=== PATIENT | male | born 1975 | race Caucasian/White ===

== ENCOUNTER 2022-07-19 04:45 | Emergency (ER) | payer MEDICAID ==
[~2022-07-19] VITALS: Ht 182.9 cm; Wt 120.1 kg
[2022-07-19] MEDS ORDERED: LIDOCAINE 5% PATCH TOP SCH (09:30)
[2022-07-19] MEDS ORDERED: IBUPROFEN 400MG TABLET PO ONE (09:30)
[2022-07-19] MEDS ORDERED: IBUP-2028 MT (09:32)
[2022-07-19 09:56] VITALS: BP 137/76
== END 2022-07-19 09:58 | disposition home or self-care (01) ==
LOC: ER 04:45
DX: M79.89 Other specified soft tissue disorders (principal); G89.29 Other chronic pain; M54.59 Other low back pain; I10 Essential (primary) hypertension; E11.9 Type 2 diabetes mellitus without complications; Z59.02 Unsheltered homelessness
CPT/HCPCS: 99283

== ENCOUNTER 2022-07-27 22:54 | Emergency (ER) | payer MEDICAID ==
[~2022-07-27] VITALS: Ht 185.4 cm; Wt 118.1 kg
[~2022-07-27 22:54] MED LIST: IBUP-2028 MT
[2022-07-28 02:25] VITALS: BP 122/72
== END 2022-07-28 02:31 | disposition home or self-care (01) ==
LOC: ER 23:06
DX: R60.0 Localized edema (principal); M54.9 Dorsalgia, unspecified; I10 Essential (primary) hypertension; E11.9 Type 2 diabetes mellitus without complications
CPT/HCPCS: 99281

== ENCOUNTER 2022-08-03 23:33 | Emergency (ER) | payer MEDICAID, OTHER ==
[~2022-08-03] VITALS: Ht 182.9 cm; Wt 82.0 kg
[2022-08-03 23:54] VITALS: BP 133/66
[2022-08-04] MEDS ORDERED: DOXY-326 MT (02:26)
[2022-08-04] MEDS ORDERED: ACET-2708 MT (02:26)
[2022-08-04] MEDS ORDERED: ACETAMINOPHEN 500MG TABLET PO ONE (02:30)
[2022-08-04] MEDS ORDERED: CEFTRIAXONE SODIUM 500 MG/VIAL IM ONE (02:30)
[2022-08-04] MEDS ORDERED: DOXYCYCLINE HYCLATE 100MG CAPSULE PO ONE (02:30)
[2022-08-04 02:53] LABS: CLARITY URINE CLEAR (CLEAR); COLOR URINE YELLOW (YELLOW); KETONES URINE TRACE (NEGATIVE); LEUKOCYTE ESTERASE URINE NEGATIVE (NEGATIVE); NITRITE URINE NEGATIVE (NEGATIVE); OCCULT BLOOD URINE 2+ (NEGATIVE); PROTEIN URINE TRACE (NEGATIVE); SPECIFIC GRAVITY URINE 1.029 (1.005-1.030)
[2022-08-07 05:11] LABS: NEISSERIA GONORRHOEAE NAA Negative (Negative)
== END 2022-08-04 03:00 | disposition home or self-care (01) ==
LOC: ER 23:33
DX: M54.59 Other low back pain (principal); R30.0 Dysuria; I10 Essential (primary) hypertension; E11.9 Type 2 diabetes mellitus without complications
CPT/HCPCS: 81003; 87491; 87591; 96372; 99283; J0696

== ENCOUNTER 2022-08-06 05:50 | Emergency (ER) | payer MEDICAID, OTHER ==
[~2022-08-06] VITALS: Ht 182.9 cm; Wt 118.3 kg
[~2022-08-06 05:50] MED LIST changes: +ACET-2708 MT; +DOXY-326 MT
[2022-08-06 09:00] VITALS: BP 130/80
== END 2022-08-06 09:49 | disposition home or self-care (01) ==
LOC: ER 06:07
DX: N52.9 Male erectile dysfunction, unspecified (principal); I10 Essential (primary) hypertension; E11.9 Type 2 diabetes mellitus without complications; F41.0 Panic disorder [episodic paroxysmal anxiety]; Z59.02 Unsheltered homelessness; F32.A Depression, unspecified
CPT/HCPCS: 82962; 99281; 99282

== ENCOUNTER 2022-08-10 22:25 | Emergency (ER) | payer MEDICAID ==
[~2022-08-10] VITALS: Ht 180.3 cm; Wt 117.8 kg
[2022-08-11] MEDS ORDERED: KETOROLAC 60MG/2ML VIAL IM STA (00:52)
[2022-08-11] MEDS ORDERED: MAGNESIUM/ALUMINUM HYDROXIDE/SIMETHICONE 30ML UDC PO ONE (01:00)
[2022-08-11] MEDS ORDERED: FAMOTIDINE 20MG TABLET PO ONE (01:00)
[2022-08-11 01:48] VITALS: BP 135/80
[2022-08-11 02:42] LABS: CLARITY URINE CLEAR (CLEAR); COLOR URINE YELLOW (YELLOW); KETONES URINE NEGATIVE (NEGATIVE); LEUKOCYTE ESTERASE URINE NEGATIVE (NEGATIVE); NITRITE URINE NEGATIVE (NEGATIVE); OCCULT BLOOD URINE 1+ (NEGATIVE); PROTEIN URINE NEGATIVE (NEGATIVE); SPECIFIC GRAVITY URINE 1.018 (1.005-1.030); UROBILINOGEN URINE 0.2 E.U./dL (0.2-1.0)
[2022-08-11] MEDS ORDERED: NAPR-681 PO (03:11)
[2022-08-11] MEDS ORDERED: FAMO20TA8 MT (03:11)
[2022-08-14 04:07] LABS: NEISSERIA GONORRHOEAE NAA Negative (Negative)
== END 2022-08-11 03:43 | disposition home or self-care (01) ==
LOC: ER 22:25
DX: R51.9 Headache, unspecified (principal); R10.13 Epigastric pain; I10 Essential (primary) hypertension; E11.9 Type 2 diabetes mellitus without complications; F20.9 Schizophrenia, unspecified; Z79.899 Other long term (current) drug therapy
CPT/HCPCS: 81003; 87491; 87591; 96372; 99283; J1885

== ENCOUNTER 2022-08-12 00:01 | Emergency (ER) | payer MEDICAID ==
[~2022-08-12] VITALS: Ht 177.8 cm; Wt 118.4 kg
[~2022-08-12 00:01] MED LIST changes: +FAMO20TA8 MT; +NAPR-681 PO
[2022-08-12 00:30] VITALS: BP 148/80
[2022-08-12 04:15] LABS: BASOPHILS % 0.5 % (0.0-2.0); HEMATOCRIT. 39.1 % (42.0-52.0); HEMOGLOBIN. 13.1 g/dL (14.0-18.0); MEAN CORPUSCULAR HEMOGLOBIN 33.9 pg (28.0-32.0); MEAN CORPUSCULAR VOLUME 101.5 fL (80.0-94.0); MEAN PLATELET VOLUME 7.9 fl (7.4-10.4); MONOCYTES % 7.6 % (2.0-8.0); NEUTROPHILS % 59.9 % (40.0-76.0); PLATELET 138 x1000/uL (130-400); RED BLOOD CELL COUNT 3.86 mill/uL (4.7-6.1); RED CELL DISTRIBUTION WIDTH 14.2 % (11.6-14.6)
[2022-08-12 04:23] LABS: CHLORIDE 105 mEq/L (98-107)
[2022-08-12 06:12] LABS: CLARITY URINE CLEAR (CLEAR); COLOR URINE YELLOW (YELLOW); KETONES URINE NEGATIVE (NEGATIVE); LEUKOCYTE ESTERASE URINE NEGATIVE (NEGATIVE); NITRITE URINE NEGATIVE (NEGATIVE); OCCULT BLOOD URINE TRACE (NEGATIVE); PROTEIN URINE NEGATIVE (NEGATIVE); SPECIFIC GRAVITY URINE 1.019 (1.005-1.030); UROBILINOGEN URINE 0.2 E.U./dL (0.2-1.0)
== END 2022-08-12 07:34 | disposition home or self-care (01) ==
LOC: ER 00:22
DX: R10.9 Unspecified abdominal pain (principal); I10 Essential (primary) hypertension; E11.9 Type 2 diabetes mellitus without complications; Z86.59 Personal history of other mental and behavioral disorders
CPT/HCPCS: 36415; 80053; 81003; 85025; 99283

== ENCOUNTER 2022-08-21 02:02 | Emergency (ER) | payer MEDICAID ==
[~2022-08-21] VITALS: Ht 177.8 cm; Wt 120.6 kg
[2022-08-21] MEDS ORDERED: ACETAMINOPHEN 500MG TABLET PO ONE (02:45)
[2022-08-21 03:20] VITALS: BP 134/85
== END 2022-08-21 03:20 | disposition home or self-care (01) ==
LOC: ER 02:02
DX: Z76.0 Encounter for issue of repeat prescription (principal); F20.9 Schizophrenia, unspecified; G89.29 Other chronic pain
CPT/HCPCS: 99282

== ENCOUNTER 2022-08-24 08:12 | Emergency (ER) | payer MEDICAID ==
[~2022-08-24] VITALS: Ht 180.3 cm; Wt 91.0 kg
[2022-08-24 12:33] LABS: BASOPHILS % 0.6 % (0.0-2.0); EOSINOPHILS % 3.4 % (0.0-5.0); HEMATOCRIT. 38.2 % (42.0-52.0); LYMPHOCYTES % 23.1 % (20.0-50.0); MEAN CORPUSCULAR HEMOGLOBIN 33.9 pg (28.0-32.0); MEAN CORPUSCULAR VOLUME 99.7 fL (80.0-94.0); MEAN PLATELET VOLUME 7.4 fl (7.4-10.4); NEUTROPHILS % 66.9 % (40.0-76.0); PLATELET 138 x1000/uL (130-400); RED BLOOD CELL COUNT 3.83 mill/uL (4.7-6.1); RED CELL DISTRIBUTION WIDTH 13.7 % (11.6-14.6)
[2022-08-24 12:41] LABS: CHLORIDE 101 mEq/L (98-107)
[2022-08-24 12:50] LABS: ETHANOL BLOOD < 10 mg/dL
[2022-08-24 15:40] LABS: *AMPHETAMINES SCREEN URINE NEGATIVE (NEGATIVE); *BARBITURATES SCREEN URINE NEGATIVE (NEGATIVE); *BENZODIAZEPINES SCREEN URINE NEGATIVE (NEGATIVE); *COCAINE SCREEN URINE NEGATIVE (NEGATIVE); CANNABINOID URINE SCREEN NEGATIVE (NEGATIVE); METHADONE URINE SCREEN NEGATIVE (NEGATIVE); OPIATES URINE SCREEN NEGATIVE (NEGATIVE); PHENCYCLIDINE URINE SCREEN NEGATIVE (NEGATIVE)
[2022-08-25] MEDS: OLANZAPINE 5MG TABLET ODT PO SCH (10:51)
[2022-08-25 16:19] LABS: CLARITY URINE CLEAR (CLEAR); COLOR URINE YELLOW (YELLOW); KETONES URINE NEGATIVE (NEGATIVE); LEUKOCYTE ESTERASE URINE NEGATIVE (NEGATIVE); NITRITE URINE NEGATIVE (NEGATIVE); OCCULT BLOOD URINE TRACE (NEGATIVE); PROTEIN URINE NEGATIVE (NEGATIVE); SPECIFIC GRAVITY URINE 1.009 (1.005-1.030); UROBILINOGEN URINE 0.2 E.U./dL (0.2-1.0)
[2022-08-26] MEDS: OLANZAPINE 5MG TABLET ODT PO SCH (09:00)
[2022-08-26 14:00] VITALS: BP 133/91
[2022-08-26] MEDS ORDERED: ACETAMINOPHEN 325MG TABLET PO ONE (14:00)
== END 2022-08-26 14:56 ==
LOC: ER 08:12
DX: R45.851 Suicidal ideations (principal); R44.1 Visual hallucinations; F32.9 Major depressive disorder, single episode, unspecified; F14.10 Cocaine abuse, uncomplicated; Z20.822 Contact with and (suspected) exposure to COVID-19
CPT/HCPCS: 36415; 80053; 80305; 80320; 81001; 85025; 87426; 99285; C9803; G0480

== ENCOUNTER 2022-09-04 22:54 | Emergency (ER) | payer MEDICAID | END 2022-09-05 00:01 | disposition left against medical advice (07) | LOC: ER 22:54 | DX: Z53.21 Procedure and treatment not carried out due to patient leaving prior to being seen by health care provider (principal) ==

== ENCOUNTER 2022-09-09 01:37 | Emergency (ER) | payer MEDICAID, OTHER ==
[~2022-09-09] VITALS: Ht 180.3 cm; Wt 121.3 kg
[2022-09-09 02:46] VITALS: BP 151/87
[2022-09-09] MEDS ORDERED: IBUP-2028 PO (04:47)
== END 2022-09-09 05:00 | disposition home or self-care (01) ==
LOC: ER 01:37
DX: G89.29 Other chronic pain (principal); M54.9 Dorsalgia, unspecified; F14.10 Cocaine abuse, uncomplicated; I10 Essential (primary) hypertension
CPT/HCPCS: 99282

== ENCOUNTER 2022-10-22 21:58 | Emergency (ER) | payer SELFPAY ==
[~2022-10-22] VITALS: Ht 182.9 cm; Wt 81.0 kg
[~2022-10-22 21:58] MED LIST changes: -DOXY-326 MT; +DOXY-456 MT; +IBUP-2028 PO
[2022-10-23] MEDS ORDERED: ACETAMINOPHEN 325MG TABLET PO ONE (03:30)
[2022-10-23] MEDS ORDERED: IBUPROFEN 400MG TABLET PO ONE (03:30)
[2022-10-23 04:01] VITALS: BP 157/81
[2022-10-23] MEDS ORDERED: IBUP-2028 MT (04:03)
[2022-10-23] MEDS ORDERED: LIDO700A30 TP (04:03)
== END 2022-10-23 04:34 | disposition home or self-care (01) ==
LOC: ER 22:11
DX: G89.29 Other chronic pain (principal); M54.50 Low back pain, unspecified; I10 Essential (primary) hypertension
CPT/HCPCS: 99283

== ENCOUNTER 2022-11-02 04:01 | Emergency (ER) | payer MEDICAID, OTHER ==
[~2022-11-02] VITALS: Ht 182.9 cm; Wt 82.0 kg
[~2022-11-02 04:01] MED LIST changes: +LIDO700A30 TP
[2022-11-02] MEDS ORDERED: IBUP-2029 MT (08:40)
[2022-11-02] MEDS ORDERED: IBUPROFEN 600MG TABLET PO ONE (08:45)
[2022-11-02 09:08] VITALS: BP 130/76
== END 2022-11-02 09:22 | disposition home or self-care (01) ==
LOC: ER 04:01
DX: G89.29 Other chronic pain (principal); M54.9 Dorsalgia, unspecified; I10 Essential (primary) hypertension; F14.10 Cocaine abuse, uncomplicated
CPT/HCPCS: 99282

== ENCOUNTER 2022-11-19 01:00 | Emergency (ER) | payer OTHER ==
[~2022-11-19] VITALS: Ht 180.3 cm; Wt 115.6 kg
[~2022-11-19 01:00] MED LIST changes: +IBUP-2029 MT
[2022-11-19 01:13] VITALS: BP 141/88
== END 2022-11-19 03:07 | disposition home or self-care (01) ==
LOC: ER 01:00
DX: F32.9 Major depressive disorder, single episode, unspecified (principal); F14.10 Cocaine abuse, uncomplicated; I10 Essential (primary) hypertension; Z59.00 Homelessness unspecified
CPT/HCPCS: 99281

== ENCOUNTER 2022-11-28 03:18 | Emergency (ER) | payer OTHER ==
[~2022-11-28] VITALS: Ht 177.8 cm; Wt 82.0 kg
[2022-11-28 03:53] VITALS: BP 141/63
[2022-11-28] MEDS ORDERED: HYDR-4001 MT ×2 (04:58→05:01)
== END 2022-11-28 05:24 | disposition home or self-care (01) ==
LOC: ER 03:18
DX: S39.012A Strain of muscle, fascia and tendon of lower back, initial encounter (principal); W18.30XA Fall on same level, unspecified, initial encounter; Y93.61 Activity, american tackle football; Y92.89 Other specified places as the place of occurrence of the external cause; Y99.8 Other external cause status
CPT/HCPCS: 99281

== ENCOUNTER 2022-12-13 22:18 | Emergency (ER) | payer OTHER ==
[~2022-12-13] VITALS: Ht 182.9 cm; Wt 153.3 kg
[~2022-12-13 22:18] MED LIST changes: +HYDR-4001 MT
[2022-12-13] MEDS ORDERED: KETOROLAC 60MG/2ML VIAL IM STA (23:09)
[2022-12-14] MEDS ORDERED: NAPR-681 PO (02:46)
[2022-12-14] MEDS ORDERED: DICL100G31 TP (02:46)
[2022-12-14 03:05] VITALS: BP 138/82
== END 2022-12-14 03:05 | disposition home or self-care (01) ==
LOC: ER 22:18
DX: M54.50 Low back pain, unspecified (principal); F14.10 Cocaine abuse, uncomplicated
CPT/HCPCS: 96372; 99283; J1885

== ENCOUNTER 2022-12-28 03:32 | Emergency (ER) | payer OTHER ==
[~2022-12-28] VITALS: Ht 182.9 cm; Wt 79.0 kg
[~2022-12-28 03:32] MED LIST changes: +DICL100G31 TP
[2022-12-28] MEDS ORDERED: METH-773 MT (07:02)
[2022-12-28] MEDS ORDERED: IBUP-2029 MT (07:02)
[2022-12-28 07:13] VITALS: BP 121/85
== END 2022-12-28 07:13 | disposition home or self-care (01) ==
LOC: ER 03:32
DX: M54.50 Low back pain, unspecified (principal); G89.29 Other chronic pain; E78.00 Pure hypercholesterolemia, unspecified; I10 Essential (primary) hypertension; F14.10 Cocaine abuse, uncomplicated; Z79.899 Other long term (current) drug therapy
CPT/HCPCS: 99281; 99283

== ENCOUNTER 2023-02-11 22:23 | Emergency (ER) | payer OTHER ==
[~2023-02-11] VITALS: Ht 180.3 cm; Wt 81.0 kg
[~2023-02-11 22:23] MED LIST changes: +METH-773 MT
[2023-02-11 23:11] VITALS: BP 112/67; PULSE 62; RESP 16; TEMP 97.9; O2SAT 98
== END 2023-02-12 03:50 | disposition left against medical advice (07) ==
LOC: ER 22:23
DX: Z53.21 Procedure and treatment not carried out due to patient leaving prior to being seen by health care provider (principal)
CPT/HCPCS: 99281

== ENCOUNTER 2023-04-26 22:22 | Emergency (ER) | payer OTHER ==
[~2023-04-26] VITALS: Ht 177.8 cm; Wt 117.1 kg
[2023-04-26 22:32] VITALS: BP 134/79; PULSE 89; RESP 18; TEMP 98.1; O2SAT 98
[2023-04-26] MEDS ORDERED: LIDO1ADH23 TP (23:45)
[2023-04-26] MEDS ORDERED: LIDOCAINE 5% PATCH TOP SCH (23:45)
[2023-04-26] MEDS ORDERED: METHOCARBAMOL 750MG TABLET PO SCH (23:45)
[2023-04-26] MEDS ORDERED: METH-653 MT (23:45)
[2023-04-26] MEDS ORDERED: IBUPROFEN 400MG TABLET PO ONE (23:45)
[2023-04-26] MEDS ORDERED: IBUP-2028 MT (23:45)
[2023-04-26] MEDS ORDERED: ACETAMINOPHEN 325MG TABLET PO ONE (23:45)
[2023-04-26] MEDS ORDERED: TOPUD PO (23:45)
== END 2023-04-27 00:40 | disposition home or self-care (01) ==
LOC: ER 22:22
DX: M54.50 Low back pain, unspecified (principal); E78.00 Pure hypercholesterolemia, unspecified; I10 Essential (primary) hypertension; F14.10 Cocaine abuse, uncomplicated; F12.10 Cannabis abuse, uncomplicated
CPT/HCPCS: 99284

== ENCOUNTER 2023-05-09 19:44 | Emergency (ER) | payer OTHER ==
[~2023-05-09] VITALS: Ht 182.9 cm; Wt 118.6 kg
[~2023-05-09 19:44] MED LIST changes: -DICL100G31 TP; +DICL100G58 TP; +LIDO1ADH23 TP; +METH-653 MT; +TOPUD PO
[2023-05-09 19:57] VITALS: TEMP 97.5; O2SAT 98
[2023-05-09] MEDS ORDERED: IBUP-2029 MT (20:01)
[2023-05-09] MEDS ORDERED: METH-653 MT (20:01)
[2023-05-09] MEDS ORDERED: ACET-2708 MT (20:01)
[2023-05-09 21:29] VITALS: BP 142/76; PULSE 70; RESP 16
== END 2023-05-09 21:31 | disposition home or self-care (01) ==
LOC: ER 19:44
DX: M54.50 Low back pain, unspecified (principal); G89.29 Other chronic pain; E78.00 Pure hypercholesterolemia, unspecified; I10 Essential (primary) hypertension; F14.10 Cocaine abuse, uncomplicated; F12.10 Cannabis abuse, uncomplicated; Z79.899 Other long term (current) drug therapy
CPT/HCPCS: 99283

== ENCOUNTER 2023-06-21 16:33 | Emergency (ER) | payer OTHER ==
[~2023-06-21] VITALS: Ht 175.3 cm; Wt 113.0 kg
[2023-06-21 16:37] VITALS: BP 154/88; TEMP 98.3; O2SAT 98
[2023-06-21 16:38] VITALS: PULSE 74; RESP 20
== END 2023-06-21 23:41 | disposition left against medical advice (07) ==
LOC: ER 16:33
DX: M54.50 Low back pain, unspecified (principal); Z53.21 Procedure and treatment not carried out due to patient leaving prior to being seen by health care provider
CPT/HCPCS: 99281

== ENCOUNTER 2023-07-18 23:08 | Emergency (ER) | payer OTHER ==
[~2023-07-18] VITALS: Ht 177.8 cm; Wt 77.0 kg
[2023-07-18 23:16] VITALS: TEMP 98.2; O2SAT 100
[2023-07-18 23:59] LABS: BASOPHILS % 0.6 % (0.0-2.0); DIFFERENTIAL COMMENT 0; EOSINOPHILS % 10.8 % (0.0-5.0); HEMATOCRIT. 37.9 % (42.0-52.0); HEMOGLOBIN. 12.4 g/dL (14.0-18.0); LYMPHOCYTES % 24.8 % (20.0-50.0); MEAN CORPUSCULAR HEMOGLOBIN 33.8 pg (28.0-32.0); MEAN CORPUSCULAR HGB CONC 32.6 g/dL (31.0-37.0); MEAN CORPUSCULAR VOLUME 103.7 fL (80.0-94.0); MEAN PLATELET VOLUME 7.3 fl (7.4-10.4); MONOCYTES % 6.5 % (2.0-8.0); NEUTROPHILS % 57.3 % (40.0-76.0); PLATELET 147 x1000/uL (130-400); RED BLOOD CELL COUNT 3.65 mill/uL (4.7-6.1); RED CELL DISTRIBUTION WIDTH 13.9 % (11.6-14.6); WHITE BLOOD COUNT 5.3 x1000/uL (4.5-11.0)
[2023-07-19 00:12] LABS: ALANINE AMINOTRANSFERASE 18 IU/L (10-49); ASPARTATE AMINOTRANSFERASE 41 IU/L (<34); BILIRUBIN TOTAL 0.8 mg/dL (0.1-1.0); CALCIUM 8.9 mg/dL (8.7-10.4); CARBON DIOXIDE 34 mEq/L (21-32); CHLORIDE 104 mEq/L (98-107); CREATININE 0.8 mg/dL (0.6-1.3); GLUCOSE 100 mg/dL (70-105); POTASSIUM 3.5 mEq/L (3.5-5.1); PROTEIN TOTAL 7.2 g/dL (6.0-8.3); SODIUM 141 mEq/L (136-145); UREA NITROGEN BLOOD 9 mg/dL (9-23)
[2023-07-19 02:50] VITALS: BP 130/85; PULSE 75; RESP 18
[2023-07-19] MEDS ORDERED: KETOROLAC 60MG/2ML VIAL IM STA (02:50)
[2023-07-19] MEDS ORDERED: HYDR453.3 TP (02:58)
[2023-07-19] MEDS ORDERED: NAPR-681 PO (02:58)
[2023-07-19] MEDS ORDERED: CETI10TA6 PO (02:58)
[2023-07-19] MEDS ORDERED: FAMO20TA8 MT (02:58)
[2023-07-19 03:10] LABS: CLARITY URINE CLEAR (CLEAR); COLOR URINE DARK YELLOW (YELLOW); GLUCOSE URINE NEGATIVE (NEGATIVE); KETONES URINE NEGATIVE (NEGATIVE); LEUKOCYTE ESTERASE URINE NEGATIVE (NEGATIVE); NITRITE URINE NEGATIVE (NEGATIVE); OCCULT BLOOD URINE 1+ (NEGATIVE); PH URINE 5.5 (4.5-8.0); PROTEIN URINE NEGATIVE (NEGATIVE); SPECIFIC GRAVITY URINE 1.028 (1.005-1.030)
[2023-07-19] MEDS ORDERED: CEPH500C2 MT (03:15)
[2023-07-19] MEDS ORDERED: PYR200 MT (03:15)
[2023-07-19 05:02] LABS: BACTERIA URINE NONE SEEN; RBC URINE 0-2 /hpf (0-2); SQUAMOUS EPITHELIAL CELL URINE NONE SEEN /lpf (RARE/1+); WBC URINE 0-2 /hpf (0-2)
[2023-07-19 05:04] LABS: CALCIUM OXALATE CRYSTALS URINE 1+ /lpf
[2023-07-21 13:07] LABS: CHLAMYDIA TRACHOMATIS NAA Negative (Negative); NEISSERIA GONORRHOEAE NAA Negative (Negative)
== END 2023-07-19 04:02 | disposition home or self-care (01) ==
LOC: ER 23:14
DX: L20.9 Atopic dermatitis, unspecified (principal); R31.9 Hematuria, unspecified; F14.10 Cocaine abuse, uncomplicated; F12.10 Cannabis abuse, uncomplicated; I10 Essential (primary) hypertension; E11.9 Type 2 diabetes mellitus without complications; Z79.899 Other long term (current) drug therapy
CPT/HCPCS: 99283; 80053; 83690; 85025; 36415; 87491; 87591; 81003; 87086; 96372; J1885

== ENCOUNTER 2023-07-29 21:36 | Emergency (ER) | payer OTHER ==
[~2023-07-29] VITALS: Ht 175.3 cm; Wt 91.0 kg
[~2023-07-29 21:36] MED LIST changes: +CEPH500C2 MT; +CETI10TA6 PO; +HYDR453.3 TP; +PYR200 MT
[2023-07-29 21:44] VITALS: BP 153/86; PULSE 69; RESP 20; TEMP 98.1; O2SAT 98
[2023-07-29] MEDS ORDERED: CYCL5TAB MT (22:51)
[2023-07-29] MEDS ORDERED: LIDO1ADH23 TP (22:51)
[2023-07-29] MEDS ORDERED: CYCLOBENZAPRINE 10MG TABLET PO ONE (23:00)
[2023-07-29] MEDS ORDERED: IBUPROFEN 400MG TABLET PO ONE (23:00)
== END 2023-07-29 23:42 | disposition home or self-care (01) ==
LOC: ER 22:26
DX: G89.29 Other chronic pain (principal); M54.50 Low back pain, unspecified; F14.10 Cocaine abuse, uncomplicated; F12.10 Cannabis abuse, uncomplicated; E11.9 Type 2 diabetes mellitus without complications; I10 Essential (primary) hypertension; Z76.0 Encounter for issue of repeat prescription; Z79.899 Other long term (current) drug therapy
CPT/HCPCS: 99283

== ENCOUNTER 2023-08-04 05:24 | Emergency (ER) | payer OTHER ==
[~2023-08-04] VITALS: Ht 177.8 cm; Wt 108.9 kg
[~2023-08-04 05:24] MED LIST changes: +CYCL5TAB MT
[2023-08-04 05:30] VITALS: O2SAT 99
[2023-08-04] MEDS ORDERED: SODIUM CHLORIDE 0.9% 1,000 ML IV ONE (05:45)
[2023-08-04] MEDS ORDERED: BLOOD SUGAR DIAGNOSTIC STRIP TEST SCH (06:00)
[2023-08-04 09:42] VITALS: BP 124/74; PULSE 64; RESP 14; TEMP 97.8
== END 2023-08-04 09:56 | disposition home or self-care (01) ==
LOC: ER 05:24
DX: M54.50 Low back pain, unspecified (principal); F14.10 Cocaine abuse, uncomplicated; F12.10 Cannabis abuse, uncomplicated; E11.9 Type 2 diabetes mellitus without complications; I10 Essential (primary) hypertension; Z79.899 Other long term (current) drug therapy
CPT/HCPCS: 99283; 71045; J7030

== ENCOUNTER 2023-08-22 20:42 | Emergency (ER) | payer MEDICAID, OTHER ==
[~2023-08-22] VITALS: Ht 182.9 cm; Wt 81.0 kg
[2023-08-22 21:16] VITALS: BP 172/92; PULSE 85; RESP 14; TEMP 98.5; O2SAT 99
== END 2023-08-22 22:15 | disposition left against medical advice (07) ==
LOC: ER 20:42
DX: R60.0 Localized edema (principal); R06.02 Shortness of breath; I10 Essential (primary) hypertension; Z79.899 Other long term (current) drug therapy
CPT/HCPCS: 71045; 93005; 93970; 99284

== ENCOUNTER 2023-10-25 06:27 | Emergency (ER) | payer MEDICAID ==
[2023-10-25 06:47] VITALS: PULSE 85; RESP 18
== END 2023-10-25 10:13 | disposition left against medical advice (07) ==
LOC: ER 06:27
DX: M54.50 Low back pain, unspecified (principal); Z53.21 Procedure and treatment not carried out due to patient leaving prior to being seen by health care provider
CPT/HCPCS: 99281

== ENCOUNTER 2023-11-11 00:58 | Emergency (ER) | payer MEDICAID ==
[~2023-11-11] VITALS: Ht 172.7 cm; Wt 82.0 kg
[2023-11-11 01:39] VITALS: BP 154/90; PULSE 85; RESP 18; TEMP 98.6; O2SAT 97
[2023-11-11 02:11] LABS: HEMATOCRIT. 35.4 % (42.0-52.0); MEAN CORPUSCULAR HEMOGLOBIN 33.7 pg (28.0-32.0); MEAN CORPUSCULAR HGB CONC 33.9 g/dL (31.0-37.0); MEAN CORPUSCULAR VOLUME 99.3 fL (80.0-94.0); MEAN PLATELET VOLUME 7.2 fl (7.4-10.4); PLATELET 171 x1000/uL (130-400); RED BLOOD CELL COUNT 3.57 mill/uL (4.7-6.1); RED CELL DISTRIBUTION WIDTH 13.8 % (11.6-14.6); WHITE BLOOD COUNT 5.6 x1000/uL (4.5-11.0)
[2023-11-11 02:19] LABS: DIFFERENTIAL COMMENT 1
[2023-11-11 02:28] LABS: CLARITY URINE CLEAR (CLEAR); COLOR URINE DARK YELLOW (YELLOW); GLUCOSE URINE NEGATIVE (NEGATIVE); KETONES URINE TRACE (NEGATIVE); LEUKOCYTE ESTERASE URINE NEGATIVE (NEGATIVE); NITRITE URINE NEGATIVE (NEGATIVE); OCCULT BLOOD URINE 1+ (NEGATIVE); PROTEIN URINE TRACE (NEGATIVE); SPECIFIC GRAVITY URINE 1.025 (1.005-1.030)
[2023-11-11 02:31] LABS: ALANINE AMINOTRANSFERASE 15 IU/L (10-49); ASPARTATE AMINOTRANSFERASE 29 IU/L (<34); BILIRUBIN TOTAL 0.5 mg/dL (0.1-1.0); CALCIUM 8.3 mg/dL (8.7-10.4); CARBON DIOXIDE 30 mEq/L (21-32); CHLORIDE 103 mEq/L (98-107); CREATININE 0.8 mg/dL (0.6-1.3); GLUCOSE 87 mg/dL (70-105); POTASSIUM 3.5 mEq/L (3.5-5.1); PROTEIN TOTAL 8.6 g/dL (6.0-8.3); SODIUM 140 mEq/L (136-145); UREA NITROGEN BLOOD 12 mg/dL (9-23)
[2023-11-11 02:40] LABS: TROPONIN I HIGH SENSITIVITY < 4 ng/L (3.0-53)
[2023-11-11 03:19] LABS: BACTERIA URINE TRACE; CALCIUM OXALATE CRYSTALS URINE 1+ /lpf; SQUAMOUS EPITHELIAL CELL URINE FEW /lpf (RARE/1+); WBC URINE 0-2 /hpf (0-2)
[2023-11-11 03:29] LABS: PLATELET ESTIMATE NORMAL
[2023-11-11 04:26] LABS: TROPONIN I HIGH SENSITIVITY < 4 ng/L (3.0-53)
[2023-11-11] MEDS ORDERED: NAPR-677 MT (05:27)
== END 2023-11-11 06:00 | disposition home or self-care (01) ==
LOC: ER 02:02
DX: R60.0 Localized edema (principal); F14.10 Cocaine abuse, uncomplicated; F12.10 Cannabis abuse, uncomplicated; I10 Essential (primary) hypertension; Z79.899 Other long term (current) drug therapy
CPT/HCPCS: 36415; 71045; 80053; 81003; 84484; 85025; 85379; 93970; 99284

== ENCOUNTER 2023-12-12 22:11 | Emergency (ER) | payer MEDICAID ==
[~2023-12-12] VITALS: Ht 180.3 cm; Wt 77.0 kg
[~2023-12-12 22:11] MED LIST changes: +NAPR-677 MT
[2023-12-12 22:24] VITALS: TEMP 98.4; O2SAT 96
[2023-12-12 23:32] LABS: BASOPHILS % 0.7 % (0.0-2.0); DIFFERENTIAL COMMENT 0; EOSINOPHILS % 13.3 % (0.0-5.0); HEMATOCRIT. 32.5 % (42.0-52.0); HEMOGLOBIN. 10.9 g/dL (14.0-18.0); LYMPHOCYTES % 18.5 % (20.0-50.0); MEAN CORPUSCULAR HGB CONC 33.5 g/dL (31.0-37.0); MEAN CORPUSCULAR VOLUME 101.4 fL (80.0-94.0); MEAN PLATELET VOLUME 6.9 fl (7.4-10.4); MONOCYTES % 8.4 % (2.0-8.0); NEUTROPHILS % 59.1 % (40.0-76.0); PLATELET 201 x1000/uL (130-400); RED BLOOD CELL COUNT 3.21 mill/uL (4.7-6.1); RED CELL DISTRIBUTION WIDTH 14.3 % (11.6-14.6); WHITE BLOOD COUNT 5.2 x1000/uL (4.5-11.0)
[2023-12-12 23:38] LABS: CHLORIDE 105 mEq/L (98-107); POTASSIUM 3.5 mEq/L (3.5-5.1); SODIUM 142 mEq/L (136-145)
[2023-12-12 23:39] LABS: CARBON DIOXIDE 31 mEq/L (21-32)
[2023-12-12 23:44] LABS: CREATININE 0.9 mg/dL (0.6-1.3); GLUCOSE 94 mg/dL (70-105)
[2023-12-12 23:45] LABS: UREA NITROGEN BLOOD 13 mg/dL (9-23)
[2023-12-12 23:46] LABS: ALANINE AMINOTRANSFERASE 11 IU/L (10-49); ALBUMIN 3.6 g/dL (3.2-4.8); ASPARTATE AMINOTRANSFERASE 22 IU/L (<34)
[2023-12-12 23:47] LABS: BILIRUBIN DIRECT 0.1 mg/dL (<=3.0); BILIRUBIN TOTAL 0.4 mg/dL (0.1-1.0)
[2023-12-13 01:17] LABS: CLARITY URINE CLEAR (CLEAR); COLOR URINE YELLOW (YELLOW); GLUCOSE URINE NEGATIVE (NEGATIVE); KETONES URINE NEGATIVE (NEGATIVE); LEUKOCYTE ESTERASE URINE NEGATIVE (NEGATIVE); NITRITE URINE NEGATIVE (NEGATIVE); OCCULT BLOOD URINE 2+ (NEGATIVE); PH URINE 7.5 (4.5-8.0); PROTEIN URINE NEGATIVE (NEGATIVE); SPECIFIC GRAVITY URINE 1.018 (1.005-1.030)
[2023-12-13 01:41] LABS: BACTERIA URINE TRACE; RBC URINE 50-100 /hpf (0-2); SQUAMOUS EPITHELIAL CELL URINE 1+ /lpf (RARE/1+); WBC URINE 0-2 /hpf (0-2)
[2023-12-13] MEDS: ACETAMINOPHEN 325MG TABLET PO STA (02:45)
[2023-12-13] MEDS: LIDOCAINE HCL/PF 1% 10 MG/ML 5ML VIAL INFIL NR (04:49)
[2023-12-13] MEDS: CEFTRIAXONE SODIUM 1G VIAL IM NR (04:49)
[2023-12-13] MEDS: FAMOTIDINE 20MG TABLET PO NR (04:50)
[2023-12-13] MEDS: BACITRACIN ZINC OINT UDPKT TOP NR ×4 (04:50)
[2023-12-13] MEDS ORDERED: SULF1TAB48 MT (05:32)
[2023-12-13] MEDS ORDERED: TRIA1TAB94 MT (05:32)
[2023-12-13] MEDS ORDERED: MUPI15CR11 TP (05:32)
[2023-12-13] MEDS ORDERED: FAMO40TA7 MT (05:32)
[2023-12-13] MEDS ORDERED: ACET-2708 PO (05:32)
[2023-12-13] MEDS ORDERED: CEPH500T MT (05:32)
[2023-12-13 06:00] VITALS: BP 151/77; PULSE 82; RESP 13
== END 2023-12-13 06:00 | disposition home or self-care (01) ==
LOC: ER 22:11
DX: R60.0 Localized edema (principal); L03.116 Cellulitis of left lower limb; K29.70 Gastritis, unspecified, without bleeding
CPT/HCPCS: 80076; 80053; 83880; 85025; 36415; 71045; 93970; 99285; 81003; 96372; J0696; J3490; Z7610

== ENCOUNTER 2024-04-10 22:26 | Emergency (ER) | payer MEDICAID ==
[2023-12-12 22:24] VITALS: TEMP 36.89184
[~2024-04-10 22:26] MED LIST changes: +ACET-2708 PO; +CEPH500T MT; -DOXY-456 MT; +DOXY100C74 MT; +FAMO40TA7 MT; +MUPI15CR11 TP; +SULF1TAB48 MT; +TRIA1TAB94 MT
[2024-04-14] MEDS ORDERED: QUET100T34 PO (08:06)
[2024-04-14] MEDS ORDERED: THIA100T88 PO (08:06)
[2024-04-14] MEDS ORDERED: MULT-1146 MT (08:06)
[2024-04-14] MEDS ORDERED: HALO5TAB PO (08:06)
[2024-04-14] MEDS ORDERED: AMLO5TAB88 PO (08:06)
[2024-04-14] MEDS ORDERED: GABA-529 PO (08:06)
[2024-04-14] MEDS ORDERED: SERT-112 PO (08:06)
[2024-04-14] MEDS ORDERED: HJ10 IJ (08:06)
[2024-04-14] MEDS ORDERED: BENZ1TAB78 PO (08:06)
[2024-04-14] MEDS ORDERED: [UNRECOGNIZED DRUG - CODE] SL (08:06)
[2024-04-14] MEDS ORDERED: PREG50CA PO (08:06)
== END 2024-04-10 23:54 | disposition left against medical advice (07) ==
LOC: ER 22:41
DX: H92.01 Otalgia, right ear (principal); Z53.21 Procedure and treatment not carried out due to patient leaving prior to being seen by health care provider

== ENCOUNTER 2024-04-29 08:55 | Emergency (ER) | payer MEDICAID ==
[~2024-04-29] VITALS: Ht 180.3 cm; Wt 109.0 kg
[~2024-04-29 08:55] MED LIST changes: +AMLO5TAB88 PO; +BENZ1TAB78 PO; +GABA-529 PO; +HALO5TAB PO; +HJ10 IJ; +MULT-1146 MT; +PREG50CA PO; +QUET100T34 PO; +SERT-112 PO; +THIA100T88 PO; +[UNRECOGNIZED DRUG - CODE] SL
[2024-04-29 09:07] VITALS: O2SAT 96
[2024-04-29] MEDS: ACETAMINOPHEN 325MG TABLET PO ONE (09:57)
[2024-04-29 14:10] VITALS: BP 138/84; PULSE 91; RESP 18; TEMP 37.05852; O2SAT 96
== END 2024-04-29 14:40 | disposition home or self-care (01) ==
LOC: ER 08:55
DX: M54.9 Dorsalgia, unspecified (principal); F14.10 Cocaine abuse, uncomplicated; F12.10 Cannabis abuse, uncomplicated; I11.0 Hypertensive heart disease with heart failure; I50.9 Heart failure, unspecified; Z79.899 Other long term (current) drug therapy
CPT/HCPCS: 74176; 99284

== ENCOUNTER 2024-04-29 21:07 | Emergency (ER) | payer MEDICAID ==
[~2024-04-29] VITALS: Ht 172.7 cm; Wt 81.0 kg
[2024-04-29 21:29] VITALS: O2SAT 98
[2024-04-29 22:36] LABS: CLARITY URINE CLEAR (CLEAR); COLOR URINE YELLOW (YELLOW); GLUCOSE URINE NEGATIVE (NEGATIVE); KETONES URINE NEGATIVE (NEGATIVE); LEUKOCYTE ESTERASE URINE NEGATIVE (NEGATIVE); NITRITE URINE NEGATIVE (NEGATIVE); OCCULT BLOOD URINE 3+ (NEGATIVE); PH URINE 5.5 (4.5-8.0); PROTEIN URINE 1+ (NEGATIVE); SPECIFIC GRAVITY URINE 1.028 (1.005-1.030)
[2024-04-29 22:39] LABS: BASOPHILS % 0.7 % (0.0-2.0); DIFFERENTIAL COMMENT 0; EOSINOPHILS % 2.1 % (0.0-5.0); HEMATOCRIT. 32.3 % (42.0-52.0); HEMOGLOBIN. 10.7 g/dL (14.0-18.0); LYMPHOCYTES % 24.9 % (20.0-50.0); MEAN CORPUSCULAR HEMOGLOBIN 34.1 pg (28.0-32.0); MEAN CORPUSCULAR VOLUME 103.1 fL (80.0-94.0); MEAN PLATELET VOLUME 7.5 fl (7.4-10.4); MONOCYTES % 7.6 % (2.0-8.0); NEUTROPHILS % 64.7 % (40.0-76.0); PLATELET 136 x1000/uL (130-400); RED BLOOD CELL COUNT 3.13 mill/uL (4.7-6.1); RED CELL DISTRIBUTION WIDTH 13.6 % (11.6-14.6); WHITE BLOOD COUNT 4.6 x1000/uL (4.5-11.0)
[2024-04-29 22:47] LABS: *AMPHETAMINES SCREEN URINE NEGATIVE (NEGATIVE); *BARBITURATES SCREEN URINE NEGATIVE (NEGATIVE); *BENZODIAZEPINES SCREEN URINE NEGATIVE (NEGATIVE); *COCAINE SCREEN URINE NEGATIVE (NEGATIVE); METHADONE URINE SCREEN NEGATIVE (NEGATIVE); OPIATES URINE SCREEN NEGATIVE (NEGATIVE)
[2024-04-29 22:47] LABS: CHLORIDE 106 mEq/L (98-107); POTASSIUM 3.8 mEq/L (3.5-5.1); SODIUM 140 mEq/L (136-145)
[2024-04-29 22:48] LABS: CANNABINOID URINE SCREEN NEGATIVE (NEGATIVE); ECSTASY MDMA SCREEN URINE NEGATIVE (NEGATIVE); PHENCYCLIDINE URINE SCREEN NEGATIVE (NEGATIVE)
[2024-04-29 22:48] LABS: CALCIUM 8.8 mg/dL (8.7-10.4); CARBON DIOXIDE 30 mEq/L (21-32)
[2024-04-29 22:53] LABS: CREATININE 1.1 mg/dL (0.6-1.3); GLUCOSE 139 mg/dL (70-105); UREA NITROGEN BLOOD 21 mg/dL (9-23)
[2024-04-29 22:54] LABS: BACTERIA URINE 1+; RBC URINE 25-50 /hpf (0-2); SQUAMOUS EPITHELIAL CELL URINE FEW /lpf (RARE/1+); WBC URINE 0-2 /hpf (0-2)
[2024-04-29 22:55] LABS: ACETAMINOPHEN < 2 ug/mL (10-30)
[2024-04-29 23:29] LABS: ETHANOL BLOOD < 10 mg/dL (<10)
[2024-04-29] MEDS: IBUPROFEN 400MG TABLET PO ONE (23:35)
[2024-04-30] MEDS: MAGNESIUM/ALUMINUM HYDROXIDE/SIMETHICONE 30ML UDC PO ONE (02:12)
[2024-04-30] MEDS: LORAZEPAM 1MG TABLET PO ONE (22:47)
[2024-05-01] MEDS: HALOPERIDOL 5MG TABLET PO SCH (11:49)
[2024-05-02 08:21] VITALS: BP 124/72; PULSE 82; RESP 18; TEMP 36.89184; O2SAT 100
== END 2024-05-02 10:01 | disposition home or self-care (01) ==
LOC: ER 21:07
DX: R45.851 Suicidal ideations (principal); F14.90 Cocaine use, unspecified, uncomplicated; F12.90 Cannabis use, unspecified, uncomplicated; F31.9 Bipolar disorder, unspecified; I11.0 Hypertensive heart disease with heart failure; I50.9 Heart failure, unspecified; F03.90 Unspecified dementia, unspecified severity, without behavioral disturbance, psychotic disturbance, mood disturbance, and anxiety; Z20.822 Contact with and (suspected) exposure to COVID-19; Z79.899 Other long term (current) drug therapy
CPT/HCPCS: 80305; 80048; 81003; 80307; 80329; 80320; 85025; 36415; 99285; 87426; 74176; J1630; G0480